=== PATIENT | female | born 1980 | race Caucasian/White ===

== ENCOUNTER 2017-01-28 12:45 | Emergency (ER) | payer OTHER ==
[2017-01-28 14:02] LABS: Basophils % (Auto) 0.5 % (0.0-1.8); Eosinophils % (Auto) 0.4 % (0.0-4.3); Hematocrit 36.6 % (30.3-42.9); Hemoglobin 11.6 gm/dl (10.1-14.3); Mean Corpuscular HGB Conc 32 % (30-34); Mean Corpuscular Hemoglobin 22 pg (28-32); Mean Corpuscular Volume 71 fl (79-97); Platelet Count 289 K/mm3 (140-440); Red Blood Count 5.19 M/mm3 (3.65-5.03); Red Cell Distribution Width 15.5 % (13.2-15.2); White Blood Count 9.1 K/mm3 (4.5-11.0)
[2017-01-28 14:28] LABS: Anion Gap 23 mmol/L; BUN/Creatinine Ratio 14.28; Blood Urea Nitrogen 10 mg/dL (7-17); Calcium 8.8 mg/dL (8.4-10.2); Carbon Dioxide 16 mmol/L (22-30); Chloride 99.6 mmol/L (98-107); Glucose 486 mg/dL (65-100); Sodium 135 mmol/L (137-145)
[2017-01-28 14:42] LABS: Bilirubin,Urine NEG (Negative); Blood,Urine NEG (Negative); Ketones,Urine TR mg/dL (Negative); Leukocyte Esterase,Urine NEG (Negative); Mucus,Urine FEW /HPF; Nitrite,Urine NEG (Negative); Protein,Urine <15 mg/dL mg/dL (Negative); Urobilinogen,Urine < 2.0 mg/dL (<2.0); WBC,Urine < 1.0 /HPF (0.0-6.0)
--- NOTE | 2017-01-28 14:46 | Emergency Department Report ---
Chief Complaint: Hyperglycemia Stated Complaint: HBS/DIABETIC Time Seen by Provider: 01/28/17 14:00 - HPI History of Present Illness: Patient here with family reports patient blood sugar was at 487 this morning. Reports patient having nausea without any vomiting. Also reports that patient is having headache at 6 out of 10. Reports that she has been on for the last 3 months she has a primary care is Dr. Saunders. She uses insulin. She is here for elevated blood glucose - ROS Review of Systems: All systems are negative unless stated in HPI above - Exam Vital Signs: Vital Signs 01/28/17 13:25 Temperature 98.1 F Pulse Rate 115 H Respiratory 24 Rate Blood Pressure 125/86 O2 Sat by Pulse 100 Oximetry Physical Exam: General: Is a 46-year-old female well-nourished well-developed nontoxic in appearance. She is alert and oriented 3. CV: Cardiac at this 115, S1 and S2. No murmur Lungs: Clear to auscultate bilaterally no rhonchi wheezes or rales. MSE screening note: Focused history and physical exam performed. Due to findings the following was ordered: ED Medical Decision Making - Lab Data Result diagrams: 01/28/17 13:43 01/28/17 13:43 Lab Results 01/28/17 01/28/17 01/28/17 Range/Units 13:22 13:43 13:43 WBC 9.1 (4.5-11.0) K/mm3 RBC 5.19 H (3.65-5.03) M/mm3 Hgb 11.6 (10.1-14.3) gm/dl Hct 36.6 (30.3-42.9) % MCV 71 L (79-97) fl MCH 22 L (28-32) pg MCHC 32 (30-34) % RDW 15.5 H (13.2-15.2) % Plt Count 289 (140-440) K/mm3 Lymph % (Auto) 25.1 (13.4-35.0) % [place] % (Auto) 8.1 H (0.0-7.3) % Eos % (Auto) 0.4 (0.0-4.3) % Baso % (Auto) 0.5 (0.0-1.8) % Lymph # 2.3 (1.2-5.4) K/mm3 [place] # 0.7 (0.0-0.8) K/mm3 Eos # 0.0 (0.0-0.4) K/mm3 Baso # 0.0 (0.0-0.1) K/mm3 Seg Neutrophils % 65.9 (40.0-70.0) % Seg Neutrophils # 6.0 (1.8-7.7) K/mm3 VBG pH (7.320-7.420) Sodium 135 L (137-145) mmol/L Potassium 4.0 (3.6-5.0) mmol/L Chloride 99.6 (98-107) mmol/L Carbon Dioxide 16 L (22-30) mmol/L Anion Gap 23 mmol/L BUN 10 (7-17) mg/dL Creatinine 0.7 (0.7-1.2) mg/dL Estimated GFR > 60 ml/min BUN/Creatinine Ratio 14.28 % Glucose 486 H (65-100) mg/dL POC Glucose 410 H (70-105) Calcium 8.8 (8.4-10.2) mg/dL Urine Color (Yellow) Urine Turbidity (Clear) Urine pH (5.0-7.0) Ur Specific [place] (1.003-1.030) Urine Protein (Negative) mg/dL Urine Glucose (UA) (Negative) mg/dL Urine Ketones (Negative) mg/dL Urine Blood (Negative) Urine Nitrite (Negative) Urine Bilirubin (Negative) Urine Urobilinogen (<2.0) mg/dL Ur Leukocyte Esterase (Negative) Urine WBC (Auto) (0.0-6.0) /HPF Urine RBC (Auto) (0.0-6.0) /HPF U Epithel Cells (Auto) (0-13.0) /HPF Urine Mucus /HPF Urine HCG, Qual (Negative) 01/28/17 01/28/17 Range/Units 13:43 14:33 WBC (4.5-11.0) K/mm3 RBC (3.65-5.03) M/mm3 Hgb (10.1-14.3) gm/dl Hct (30.3-42.9) % MCV (79-97) fl MCH (28-32) pg MCHC (30-34) % RDW (13.2-15.2) % Plt Count (140-440) K/mm3 Lymph % (Auto) (13.4-35.0) % [place] % (Auto) (0.0-7.3) % Eos % (Auto) (0.0-4.3) % Baso % (Auto) (0.0-1.8) % Lymph # (1.2-5.4) K/mm3 [place] # (0.0-0.8) K/mm3 Eos # (0.0-0.4) K/mm3 Baso # (0.0-0.1) K/mm3 Seg Neutrophils % (40.0-70.0) % Seg Neutrophils # (1.8-7.7) K/mm3 VBG pH 7.347 (7.320-7.420) Sodium (137-145) mmol/L Potassium (3.6-5.0) mmol/L Chloride (98-107) mmol/L Carbon Dioxide (22-30) mmol/L Anion Gap mmol/L BUN (7-17) mg/dL Creatinine (0.7-1.2) mg/dL Estimated GFR ml/min BUN/Creatinine Ratio % Glucose (65-100) mg/dL POC Glucose (70-105) Calcium (8.4-10.2) mg/dL Urine Color Straw (Yellow) Urine Turbidity Clear (Clear) Urine pH 5.0 (5.0-7.0) Ur Specific [place] 1.031 H (1.003-1.030) Urine Protein <15 mg/dl (Negative) mg/dL Urine Glucose (UA) >=500 (Negative) mg/dL Urine Ketones Tr (Negative) mg/dL Urine Blood Neg (Negative) Urine Nitrite Neg (Negative) Urine Bilirubin Neg (Negative) Urine Urobilinogen < 2.0 (<2.0) mg/dL Ur Leukocyte Esterase Neg (Negative) Urine WBC (Auto) < 1.0 (0.0-6.0) /HPF Urine RBC (Auto) 4.0 (0.0-6.0) /HPF U Epithel Cells (Auto) 1.0 (0-13.0) /HPF Urine Mucus Few /HPF Urine HCG, Qual Negative (Negative) - Medical Decision Making Medical decision making: Patient seen by provider in triage area. Appropriate protocol activated and patient to main ED to be seen by physician. ED Disposition for MSE Condition: Stable
[2017-01-28] MEDS ORDERED: NACL 0.9% 1000 ML 1,000 ML IV ONE ×2 (16:57)
--- NOTE | 2017-01-28 17:40 | Emergency Department Report ---
ED General Adult HPI - General Chief complaint: Hyperglycemia Stated complaint: HBS/DIABETIC Time Seen by Provider: 01/28/17 14:31 Source: patient, family Mode of arrival: Ambulatory Limitations: No Limitations - History of Present Illness Initial comments: 36 year old female with a past medical history of insulin-dependent diabetes presents to the hospital for elevated glucose. For the past 2 months her glucose has been 300-500 range. Today she started having nausea and headache rated 6/10 intensity so came to ER for evaluation. Patient states she is prescribed NovoLog 25 mg 3 times a day and Lantus 50 units at bedtime. Patient will average takes her novlog insulin 1-2 times a day. Sometimes she decreases her dose if she eats less or does not take the medication at all if she does not eat a meal. She is also noncompliant with her evening dose of Lantus and does not take it every day as scheduled. Patient does not complain of any pain currently although headache of reported in triage and only complains of feeling hungry. She complains of vaginal discharge as well. Patient does have a PMD Dr. Saunders - Related Data Home Medications Medication Instructions Recorded Confirmed Last Taken Insulin Aspart [NovoLOG Flexpen] 25 units SQ AC 01/28/17 01/28/17 01/26/17 Insulin Glargine [Lantus] 50 units SQ QHS 01/28/17 01/28/17 01/26/17 Allergies Allergy/AdvReac Type Severity Reaction Status Date / Time No Known Allergies Allergy Unverified 01/28/17 13:25 ED Review of Systems ROS: Stated complaint: HBS/DIABETIC Other details as noted in HPI Comment: All other systems reviewed and negative Other: Constitutional: No fevers chills Eyes: No eye pain visual changes ENT: No ear pain or throat pain Neck: Denies pain Respiratory: Denies cough wheezing shortness of breath Cardiovascular: Denies chest pain, palpitations, syncope GI: Denies abdominal pain, vomiting, diarrhea : Denies dysuria Musculoskeletal: Denies back pain Skin: Denies rash, lesions, erythema Neurologic: Denies numbness, weakness Psychiatric: Denies suicidal ideation, hallucinations ED Past Medical Hx - Past Medical History Previous Medical History?: Yes Hx Diabetes: Yes - Surgical History Past Surgical History?: No - Social History Smoking Status: Never Smoker Substance Use Type: None - Medications Home Medications: Home Medications Medication Instructions Recorded Confirmed Last Taken Type Insulin Aspart [NovoLOG Flexpen] 25 units SQ AC 01/28/17 01/28/17 01/26/17 History Insulin Glargine [Lantus] 50 units SQ QHS 01/28/17 01/28/17 01/26/17 History ED Physical Exam - General Limitations: No Limitations - Other Other exam information: General: No limitations, patient is alert in no acute distress Head exam: Atraumatic, normocephalic Eyes exam: Normal appearance ENT: Moist mucous membrane, normal oropharynx Neck exam: Normal inspection, full range of motion Respiratory exam: Clear to auscultation bilateral, no wheezes, rales, crackles Cardiovascular: Mild tachycardia regular rhythm Abdomen: Soft, nondistended, and nontender, with normal bowel sounds, no rebound, or guarding Extremity: Full range of motion normal inspection no deformity Back: Normal Inspection, full range of motion, no tenderness Neurologic: Alert, oriented x3, cranial nerves intact, no motor or sensory deficit Psychiatric: normal affect, normal mood Skin: Warm, dry, intact ED Course Vital Signs 01/28/17 01/28/17 13:25 18:35 Temperature 98.1 F 98.3 F Pulse Rate 115 H 97 H Respiratory 24 18 Rate Blood Pressure 125/86 Blood Pressure 132/71 [Right] O2 Sat by Pulse 100 98 Oximetry - Reevaluation(s) Reevaluation #1: 01/28/17 19:57 Patient received insulin at 2 L or normal saline with improvement and glucose level and symptoms ED Medical Decision Making - Lab Data Result diagrams: 01/28/17 13:43 01/28/17 13:43 Lab Results 01/28/17 01/28/17 01/28/17 Range/Units 13:22 13:43 13:43 WBC 9.1 (4.5-11.0) K/mm3 RBC 5.19 H (3.65-5.03) M/mm3 Hgb 11.6 (10.1-14.3) gm/dl Hct 36.6 (30.3-42.9) % MCV 71 L (79-97) fl MCH 22 L (28-32) pg MCHC 32 (30-34) % RDW 15.5 H (13.2-15.2) % Plt Count 289 (140-440) K/mm3 Lymph % (Auto) 25.1 (13.4-35.0) % [place] % (Auto) 8.1 H (0.0-7.3) % Eos % (Auto) 0.4 (0.0-4.3) % Baso % (Auto) 0.5 (0.0-1.8) % Lymph # 2.3 (1.2-5.4) K/mm3 [place] # 0.7 (0.0-0.8) K/mm3 Eos # 0.0 (0.0-0.4) K/mm3 Baso # 0.0 (0.0-0.1) K/mm3 Seg Neutrophils % 65.9 (40.0-70.0) % Seg Neutrophils # 6.0 (1.8-7.7) K/mm3 VBG pH (7.320-7.420) Sodium 135 L (137-145) mmol/L Potassium 4.0 (3.6-5.0) mmol/L Chloride 99.6 (98-107) mmol/L Carbon Dioxide 16 L (22-30) mmol/L Anion Gap 23 mmol/L BUN 10 (7-17) mg/dL Creatinine 0.7 (0.7-1.2) mg/dL Estimated GFR > 60 ml/min BUN/Creatinine Ratio 14.28 % Glucose 486 H (65-100) mg/dL POC Glucose 410 H (70-105) Calcium 8.8 (8.4-10.2) mg/dL Urine Color (Yellow) Urine Turbidity (Clear) Urine pH (5.0-7.0) Ur Specific [place] (1.003-1.030) Urine Protein (Negative) mg/dL Urine Glucose (UA) (Negative) mg/dL Urine Ketones (Negative) mg/dL Urine Blood (Negative) Urine Nitrite (Negative) Urine Bilirubin (Negative) Urine Urobilinogen (<2.0) mg/dL Ur Leukocyte Esterase (Negative) Urine WBC (Auto) (0.0-6.0) /HPF Urine RBC (Auto) (0.0-6.0) /HPF U Epithel Cells (Auto) (0-13.0) /HPF Urine Mucus /HPF Urine HCG, Qual (Negative) 01/28/17 01/28/17 01/28/17 Range/Units 13:43 14:33 17:26 WBC (4.5-11.0) K/mm3 RBC (3.65-5.03) M/mm3 Hgb (10.1-14.3) gm/dl Hct (30.3-42.9) % MCV (79-97) fl MCH (28-32) pg MCHC (30-34) % RDW (13.2-15.2) % Plt Count (140-440) K/mm3 Lymph % (Auto) (13.4-35.0) % [place] % (Auto) (0.0-7.3) % Eos % (Auto) (0.0-4.3) % Baso % (Auto) (0.0-1.8) % Lymph # (1.2-5.4) K/mm3 [place] # (0.0-0.8) K/mm3 Eos # (0.0-0.4) K/mm3 Baso # (0.0-0.1) K/mm3 Seg Neutrophils % (40.0-70.0) % Seg Neutrophils # (1.8-7.7) K/mm3 VBG pH 7.347 (7.320-7.420) Sodium (137-145) mmol/L Potassium (3.6-5.0) mmol/L Chloride (98-107) mmol/L Carbon Dioxide (22-30) mmol/L Anion Gap mmol/L BUN (7-17) mg/dL Creatinine (0.7-1.2) mg/dL Estimated GFR ml/min BUN/Creatinine Ratio % Glucose (65-100) mg/dL POC Glucose 305 H (70-105) Calcium (8.4-10.2) mg/dL Urine Color Straw (Yellow) Urine Turbidity Clear (Clear) Urine pH 5.0 (5.0-7.0) Ur Specific [place] 1.031 H (1.003-1.030) Urine Protein <15 mg/dl (Negative) mg/dL Urine Glucose (UA) >=500 (Negative) mg/dL Urine Ketones Tr (Negative) mg/dL Urine Blood Neg (Negative) Urine Nitrite Neg (Negative) Urine Bilirubin Neg (Negative) Urine Urobilinogen < 2.0 (<2.0) mg/dL Ur Leukocyte Esterase Neg (Negative) Urine WBC (Auto) < 1.0 (0.0-6.0) /HPF Urine RBC (Auto) 4.0 (0.0-6.0) /HPF U Epithel Cells (Auto) 1.0 (0-13.0) /HPF Urine Mucus Few /HPF Urine HCG, Qual Negative (Negative) 01/28/17 Range/Units 18:32 WBC (4.5-11.0) K/mm3 RBC (3.65-5.03) M/mm3 Hgb (10.1-14.3) gm/dl Hct (30.3-42.9) % MCV (79-97) fl MCH (28-32) pg MCHC (30-34) % RDW (13.2-15.2) % Plt Count (140-440) K/mm3 Lymph % (Auto) (13.4-35.0) % [place] % (Auto) (0.0-7.3) % Eos % (Auto) (0.0-4.3) % Baso % (Auto) (0.0-1.8) % Lymph # (1.2-5.4) K/mm3 [place] # (0.0-0.8) K/mm3 Eos # (0.0-0.4) K/mm3 Baso # (0.0-0.1) K/mm3 Seg Neutrophils % (40.0-70.0) % Seg Neutrophils # (1.8-7.7) K/mm3 VBG pH (7.320-7.420) Sodium (137-145) mmol/L Potassium (3.6-5.0) mmol/L Chloride (98-107) mmol/L Carbon Dioxide (22-30) mmol/L Anion Gap mmol/L BUN (7-17) mg/dL Creatinine (0.7-1.2) mg/dL Estimated GFR ml/min BUN/Creatinine Ratio % Glucose (65-100) mg/dL POC Glucose 152 H (70-105) Calcium (8.4-10.2) mg/dL Urine Color (Yellow) Urine Turbidity (Clear) Urine pH (5.0-7.0) Ur Specific [place] (1.003-1.030) Urine Protein (Negative) mg/dL Urine Glucose (UA) (Negative) mg/dL Urine Ketones (Negative) mg/dL Urine Blood (Negative) Urine Nitrite (Negative) Urine Bilirubin (Negative) Urine Urobilinogen (<2.0) mg/dL Ur Leukocyte Esterase (Negative) Urine WBC (Auto) (0.0-6.0) /HPF Urine RBC (Auto) (0.0-6.0) /HPF U Epithel Cells (Auto) (0-13.0) /HPF Urine Mucus /HPF Urine HCG, Qual (Negative) wet prep neg, gc/chl pending - Medical Decision Making Patient has a anion gap decreased bicarbonate but normal pH and only trace urine ketones. Glucose improved with treatment. Patient also is not ill- appearing. Will be encouraged to take her insulin as prescribed and follow up with her doctor. HR improved - Differential Diagnosis DKA, hyperglycemia, medication noncompliance, yeast vaginitis, Critical Care Time: No Critical care attestation.: If time is entered above; I have spent that time in minutes in the direct care of this critically ill patient, excluding procedure time. ED Disposition Clinical Impression: Diabetes mellitus with hyperglycemia, Noncompliance with medication regimen Disposition: DISCHARGED TO HOME OR SELFCARE Is pt being admited?: No Does the pt Need Aspirin: No Condition: Stable Instructions: Diabetes Mellitus Type 2 in Adults (ED) Additional Instructions: Take your insulin as prescribed. Continue to monitor your sugars multiple times daily to ensure that the insulin is adequate to control your sugars. Follow up with your primary care doctor for further medication adjustment. [place] pizarro insulina segn lo prescrito. Contine monitoreando dina azcares varias veces al da para asegurarse de que la insulina es adecuada para controlar dina azcares. Viviana un seguimiento con pizarro mdico de atencin primaria para un ajuste adicional de la medicacin. Referrals: PRIMARY CARE, [Primary Care Provider] - 2-3 Days Time of Disposition: 20:01
[2017-01-28 18:37] VITALS: BP 132/71
--- NOTE | 2017-01-28 19:04 | Admit Criteria Form ---
Admission Criteria Documentation: DIABETES Clinical Indications for Admission to Inpatient Care (Place 'X' for any and all applicable criteria): Admission is indicated by presence of ALL (if I & II) or ANY ONE (if III or IV) of the following (1)(2)(3)(4): [ ]I. Diabetes is uncontrolled as indicated by ANY ONE of the following: [ ]a) Diabetic ketoacidosis as indicated by ALL of the following (8): [ ]i) Hyperglycemia (eg, plasma glucose greater than 200 mg/ dL (11.1 mmol/L)) [ ]ii) Acidosis (eg, arterial pH less than 7.30, serum bicarbonate level less than 15 mEq/L (mmol/L)) [ ]iii) Moderate ketonuria or ketonemia [ ]b) Hyperglycemic hyperosmolar state as indicated by ALL of the following(9)(10): [ ]i) Neurologic dysfunction (eg, stupor, coma, hemiparesis , seizure)(13) [ ]ii) Plasma glucose greater than 600 mg/dL (33.3 mmol/L) [ ]iii) Serum osmolality greater than 320 mOsm/kg (mmol/kg) [ ]c) Severe signs or symptoms secondary to hyperglycemia indicated by ANY ONE of the following: [ ]i) Altered mental status(10) [ ]ii) Significant hypovolemia or dehydration [ ]iii) Intractable nausea or vomiting [ ]iv) Unexplained fever or severe infection [ ]v) Severe electrolyte abnormality (eg, hypokalemia, hyperkalemia, hypernatremia) [ ]II. Management at other levels of care (Also use Diabetes: Observation Care as appropriate) is not feasible because of ANY ONE of the following: [ ]a) Condition was not adequately corrected with treatment at other levels of care. [ ]b) Treatment at other levels of care is not appropriate because of condition severity (eg, hyperosmolar coma). [ ]III. Contraindications and/or Inappropriate clinical situations for Observational Care in patients with Diabetes, when ANY ONE of the following is required: [ ]a) Patient require specific diagnostic workup or therapeutic intervention 22 [ ]b) Patient with abnormal vital signs or altered mental status 23 [ ]IV. General contraindications and/or Inappropriate clinical situations for Observational Care in patients with Diabetes, when ANY ONE of the following is required: [ ]a) Prediction of prolongation of LOS based on ANY ONE of the following may be considered as a contraindication for observational care 2, 3, 4, 5, 6, 7, 8, 9, 10, 11 [ ]i) Age > 65 yrs. [ ]ii) Patient arriving by ambulance [ ]iii) Patient with high acuity [ ]iv) Patient requiring vital sign monitoring [ ]v) Patient on IV medication [ ]b) Systolic blood pressures 180mmHg 3,12 [ ]c) Patient with altered mental status including delirium and other alteration of consciousness, (3) [ ]d) Patient whose discharge disposition will be to a half-way home or rehabilitation home should not be managed in Emergency Department Observation Unit. CMS rule requires 3 days hospital stay before such placement.3,13 [ ]e) Patient with failure to thrive due to broad array of etiologies 3,16,17 [ ]f) Inability to ambulate 3,14 Extended stay beyond goal length of stay may be needed for(3)(20): [ ]a) Treatment of precipitating causes [ ]b) Development of hypoglycemia [ ]c) Complications of treatment [ ]d) Complications of decompensated diabetes (eg, acute gastric dilatation, persistent metabolic or neurologic derangement) [ ]e) Active Comorbidities [ ]f) Older patients( 65 years or older) The original [employer] content created by [employer] has been revised. The portions of the content which have been revised are identified through the use of italic text or in bold,and [facility] has neither reviewed nor approved the modified material. All other unmodified content is copyright [facility] Please see references footnoted in the original [facility] edition 2016
[2017-02-01 07:31] LABS: B-Hydroxybutyrate 0.1 mmol/L (0.2 - 0.28)
== END 2017-01-28 20:15 | disposition home or self-care (01) ==
LOC: ED 12:45
DX: E11.65 Type 2 diabetes mellitus with hyperglycemia (principal); Z79.4 Long term (current) use of insulin
CPT/HCPCS: 36415; 80048; 81001; 81025; 82010; 82805; 82962; 85025; 87210; 87591; 96361; 96374; 99284; J7030; J1815

== ENCOUNTER 2019-01-09 12:20 | Emergency (ER) | payer OTHER ==
--- NOTE | 2019-01-09 13:08 | Emergency Department Report ---
Blank Doc - Documentation Documentation: 38 y/o female presents to ED c/o of a few days history of pelvic pain associated with hematuria and dysuria. no vaginal discharge. no nausea or vomiting. [employer] was her roomate and best friend (language line down)
[2019-01-09 13:57] LABS: HCG Qualitative,Urine Negative (Negative)
[2019-01-09 13:58] LABS: Bilirubin,Urine NEG (Negative); Blood,Urine SM (Negative); Color,Urine Straw (Yellow); Mucus,Urine FEW /HPF; Protein,Urine <15 mg/dL mg/dL (Negative); Urobilinogen,Urine < 2.0 mg/dL (<2.0)
[2019-01-09 14:10] LABS: Hematocrit 34.1 % (30.3-42.9); Hemoglobin 11.2 gm/dl (10.1-14.3); Mean Corpuscular HGB Conc 33 % (30-34); Mean Corpuscular Volume 72 fl (79-97); Platelet Count 251 K/mm3 (140-440)
[2019-01-09 14:11] LABS: Red Cell Distribution Width 30.3 % (13.2-15.2)
[2019-01-09 14:33] LABS: Alanine Aminotransferase 13 units/L (7-56); Albumin 3.5 g/dL (3.9-5); BUN/Creatinine Ratio 15; Blood Urea Nitrogen 9 mg/dL (7-17); Calcium 8.9 mg/dL (8.4-10.2); Hemolysis Index 8
[2019-01-09 14:36] LABS: Bilirubin,Direct < 0.2 mg/dL (0-0.2)
[2019-01-09] MEDS ORDERED: MORPHINE IV ONE ×2 (15:02→16:38)
[2019-01-09] MEDS ORDERED: NACL 0.9% 1000 ML 1,000 ML IV ONE (15:02)
[2019-01-09] MEDS ORDERED: ZOFRAN IV ONE (15:02)
[2019-01-09 15:31] LABS: Basophils % (Manual) 0 % (0.0-1.8); Eosinophils % (Manual) 0 % (0.0-4.3); Total Cells Counted 100
[2019-01-09 15:32] LABS: Anisocytosis 2+; Platelet Estimate Consistent w Auto
--- NOTE | 2019-01-09 15:34 | Emergency Department Report ---
<YENNI ROBB - Last Filed: 01/09/19 16:45> ED Abdominal Pain HPI - General Chief Complaint: Abdominal Pain Stated Complaint: ABD PAIN/REF BY DR Time Seen by Provider: 01/09/19 12:55 Source: patient Mode of arrival: Ambulatory Limitations: No Limitations - History of Present Illness Initial Comments: This is a 38-year-old female nontoxic, well nourished in appearance, no acute signs of distress presents to the ED with c/o of left flank pain with left sided abdominal pain 3 days. Patient denies any nausea or vomiting. Patient describes abdominal pain as cramping and aching with level of 3/10. Patient denies chest pain, short of breath, fever, chills, headache, stiff neck, numbness or tingling. Patient denies any diarrhea or constipation. Patient denies any recent travels. Patient stated allergies to flagyl. Patient also stated has some urinary dysuria and frequency. PMH includes DM. Family member is present during exam and interview. MD Complaint: abdominal pain, flank pain (left flank) -: days(s) (3) Location: LUQ Radiation: L flank Migration to: no migration Severity: mild Severity scale (0 -10): 8 Quality: cramping, aching Consistency: constant Improves With: nothing Worsens With: nothing Associated Symptoms: denies other symptoms. denies: nausea, vomiting, diarrhea, fever, chills, constipation, dysuria, hematemesis, hematochezia, melena, hematuria, anorexia, syncope - Related Data Home Medications Medication Instructions Recorded Confirmed Last Taken Insulin Aspart [NovoLOG Flexpen] 25 units SQ AC 01/28/17 01/28/17 01/26/17 Insulin Glargine [Lantus] 50 units SQ QHS 01/28/17 01/28/17 01/26/17 Previous Rx's Medication Instructions Recorded Last Taken Type Ibuprofen [Ibu] 800 mg PO Q8H PRN #20 tablet 01/09/19 Unknown Rx Ondansetron [Zofran Odt] 4 mg PO Q8HR #10 tab.rapdis 01/09/19 Unknown Rx Oxycodone HCl/Acetaminophen 1 each PO Q6HR PRN #14 tablet 01/09/19 Unknown Rx [Percocet 7.5/325 mg] levoFLOXacin [Levaquin TAB] 500 mg PO QDAY #10 tablet 01/09/19 Unknown Rx Allergies Allergy/AdvReac Type Severity Reaction Status Date / Time fluconazole Allergy Itching Verified 01/09/19 12:24 ED Review of Systems Constitutional: denies: chills, fever Eyes: denies: eye pain, eye discharge, vision change ENT: denies: ear pain, throat pain Respiratory: denies: cough, shortness of breath, wheezing Cardiovascular: denies: chest pain, palpitations Endocrine: no symptoms reported Gastrointestinal: abdominal pain, nausea, vomiting. denies: diarrhea Genitourinary: denies: urgency, dysuria, discharge Musculoskeletal: denies: back pain, joint swelling, arthralgia Skin: denies: rash, lesions Neurological: denies: headache, weakness, paresthesias Psychiatric: denies: anxiety, depression Hematological/Lymphatic: denies: easy bleeding, easy bruising ED Past Medical Hx - Past Medical History Hx Diabetes: Yes Additional medical history: hypothyroid, - Surgical History Additional Surgical History: c sect. x 3, tubal ligation, reversion of tubal - Social History Smoking Status: Never Smoker Substance Use Type: None - Medications Home Medications: Home Medications Medication Instructions Recorded Confirmed Last Taken Type Insulin Aspart [NovoLOG Flexpen] 25 units SQ AC 01/28/17 01/28/17 01/26/17 History Insulin Glargine [Lantus] 50 units SQ QHS 01/28/17 01/28/17 01/26/17 History Ibuprofen [Ibu] 800 mg PO Q8H PRN #20 tablet 01/09/19 Unknown Rx Ondansetron [Zofran Odt] 4 mg PO Q8HR #10 tab.rapdis 01/09/19 Unknown Rx Oxycodone HCl/Acetaminophen 1 each PO Q6HR PRN #14 tablet 01/09/19 Unknown Rx [Percocet 7.5/325 mg] levoFLOXacin [Levaquin TAB] 500 mg PO QDAY #10 tablet 01/09/19 Unknown Rx ED Physical Exam - General Limitations: No Limitations General appearance: alert, in no apparent distress - Head Head exam: Present: atraumatic, normocephalic - Eye Eye exam: Present: normal appearance - Neck Neck exam: Present: normal inspection, full ROM. Absent: tenderness, meningismus, lymphadenopathy - Respiratory Respiratory exam: Present: normal lung sounds bilaterally. Absent: respiratory distress, wheezes, rales, rhonchi, stridor, chest wall tenderness, accessory muscle use, decreased breath sounds, prolonged expiratory - Cardiovascular Cardiovascular Exam: Present: regular rate, normal rhythm, normal heart sounds. Absent: irregular rhythm, systolic murmur, diastolic murmur, rubs, gallop - GI/Abdominal GI/Abdominal exam: Present: soft, tenderness (LUQ), normal bowel sounds. Absent: distended, guarding, rebound, rigid, diminished bowel sounds - Expanded GI/Abdominal Exam Expanded GI/Abdominal exam: Absent: psoas sign, Gee's sign, Rovsing's sign, tenderness at Mcburney's Point, ascites - Extremities Exam Extremities exam: Present: normal inspection, full ROM - Back Exam Back exam: Present: normal inspection, full ROM, CVA tenderness (L). Absent: tenderness, CVA tenderness (R), muscle spasm, paraspinal tenderness, vertebral tenderness, rash noted - Neurological Exam Neurological exam: Present: alert, oriented X3 - Psychiatric Psychiatric exam: Present: normal affect, normal mood - Skin Skin exam: Present: warm, dry, intact, normal color. Absent: rash ED Course - Reevaluation(s) Reevaluation #1: 01/09/19 15:34 Patient is speaking in full sentences with no signs of distress noted. - Consultations Consultation #1: 01/09/19 16:41 Patient has been consulted with Dr. Hauser (hospitalist) about patient history, physical exam, and labs/CT results and accepts patient to services for admission. ED Medical Decision Making - Lab Data Result diagrams: 01/09/19 14:00 01/09/19 14:00 - Medical Decision Making This is a 38-year-old female that presents with pyelonephritis. Patient is stable and was examined by me. Labs obtained. UA obtained. CT with contrast of abdomen obtained and dictated by the radiologist. Patient is notified of the report with no questions noted by the patient. Vital signs are stable. due to patient history of DM and pyelonephritis with uncontrolled pain, patient to be admitted. Patient received 1 g of Rocephin IV in the ER. Patient also received 8 mg of morphine in the ER and stated that symptoms of pain has not resolved. Patient was discussed with Dr. Hauser hospitalist and accepts patient for admission. At time of admission, the patient does not seem toxic or ill in appearance. No acute signs of distress noted. Patient agrees to admission treatment plan of care. No further questions noted by the patient. Patient's family member was present during full physical exam and interview for translation purposes. ED Disposition Clinical Impression: Pyelonephritis, Hyperglycemia Disposition: DC-01 TO HOME OR SELFCARE Is pt being admited?: Yes Condition: Stable Additional Instructions: Please follow up with whichever urologist conceive soonest Referrals: TRISTIN WADE MD [Staff Physician] - 3-5 Days ERIN HERNANDEZ MD [Staff Physician] - 3-5 Days Print Language: BURKINAN <SO TORRES - Last Filed: 01/09/19 21:50> ED Review of Systems ROS: Stated complaint: ABD PAIN/REF BY Other details as noted in HPI ED Course Vital Signs 01/09/19 01/09/19 01/09/19 13:04 16:46 17:39 Temperature 99.2 F Pulse Rate 117 H 99 H Respiratory 20 18 18 Rate Blood Pressure 138/90 Blood Pressure 122/82 [Right] O2 Sat by Pulse 98 Oximetry 01/09/19 21:00 Temperature Pulse Rate 101 H Respiratory 18 Rate Blood Pressure Blood Pressure 112/68 [Right] O2 Sat by Pulse 99 Oximetry ED Medical Decision Making - Lab Data Result diagrams: 01/09/19 14:00 01/09/19 14:00 - Medical Decision Making Patient is a 38-year-old female who is presenting with some left-sided flank pain. Urinalysis did not show a urinary tract infection however CT does show that she has some perinephric stranding. This is an abnormal presentation of pyelonephritis. Patient earlier was having intractable pain and after being given morphine was still having pain before decision was made to have the hospitalist service see the patient for probable admission. Patient was given additional 1 mg of Dilaudid. That they redid see the patient and the patient's pain was well-controlled and feels that the patient met criteria for hospi talization at this time since the patient was tolerating by mouth and was having better pain control. Patient was examined by me as well and the patient states that her pain was a 3 out of 10 in severity. She states she is much better than she was earlier today. Incisions been made to discharge patient home. Patient was started on Levaquin which hasn't same bioavailability whether given by mouth or IV the patient be given Percocet for pain control and the patient will be discharged home for follow-up with urology. Because of the abnormal presentation of pyelonephritis distress to the patient is to call urology tomorrow in the morning to schedule follow-up. Critical care attestation.: If time is entered above; I have spent that time in minutes in the direct care of this critically ill patient, excluding procedure time. ED Disposition Is pt being admited?: No Does the pt Need Aspirin: No Time of Disposition: 21:50
--- NOTE | 2019-01-09 16:22 | Cat Scan Report ---
PROCEDURE: CT ABDOMEN PELVIS W CON TECHNIQUE: Axial images obtained at or pelvis following intravenous administration of contrast. Sagi ttal and coronal reformatted images obtained. HISTORY: abdominal pain COMPARISONS: None FINDINGS: Lung bases demonstrate hypoventilatory changes. No effusion. Liver demonstrates hypoattenuation compatible with fatty infiltration. Mild hepatomegaly. No focal le naima. Gallbladder demonstrates radiopaque calculi. Crocheter calculus measures 1.7 cm. No biliary dila tation. Spleen and pancreas unremarkable. Adrenal glands unremarkable. Right kidney demonstrates normal contour. Normal enhancement. No hydronephrosis. No evidence of obstr uction Left kidney demonstrates. Hypoattenuation midpole compatible with pyelonephritis. Perinephric strandi ng compatible with inflammatory change. No hydronephrosis. No evidence of obstruction. No abscess. Bladder unremarkable. Anteverted uterus. No adnexal mass. Aorta normal caliber. No atherosclerotic calcification. Celiac and superior mesenteric arteries are p atent. No bowel obstruction. No diverticulosis. No diverticulitis. Normal appendix. No free air. No free flu id. Omentum and mesentery unremarkable. No acute bony abnormality. IMPRESSION: . Hypoenhancement mid left kidney compatible with polynephritis. Perinephric stranding. No hydronephr osis. No abscess. Fatty infiltration liver. Mild hepatomegaly Cholelithiasis No free air. No free fluid No bowel obstruction Normal appendix. This document is electronically signed by Luis Jang MD., January 09 2019 04:20:48 PM ET
[2019-01-09] MEDS ORDERED: ROCEPHIN/NS 1 GM/50 ML 1 GM/50 ML BAG IV ONE (16:24)
[2019-01-09] MEDS ORDERED: DILAUDID IV ONE (18:26)
[2019-01-09] MEDS ORDERED: DILAUDID ONE (18:29)
[2019-01-09] MEDS ORDERED: LEVAQUIN PO ONE (21:35)
[2019-01-09 22:43] VITALS: BP 116/78
== END 2019-01-09 22:45 | disposition home or self-care (01) ==
LOC: ED 12:20
DX: N12 Tubulo-interstitial nephritis, not specified as acute or chronic (principal); E11.65 Type 2 diabetes mellitus with hyperglycemia; E03.9 Hypothyroidism, unspecified; Z98.51 Tubal ligation status; Z88.1 Allergy status to other antibiotic agents; Z79.4 Long term (current) use of insulin
CPT/HCPCS: 36415; 74177; 80048; 80076; 81001; 81025; 83690; 85007; 85025; 87086; 96361; 96365; 96375; 96376; 99284; J0696; J1170; J2270; J2405; J7030; Q9967

== ENCOUNTER 2019-10-12 14:20 | Emergency (ER) | payer OTHER ==
--- NOTE | 2019-10-12 14:33 | Event Note ---
ED Screening Note Date of service: 10/12/19 Time: 14:30 ED Screening Note: This is a 39 y.o. F. that presents to the ER with hyperglycemia. PMH of DM2 and hypothyroidism Patient taking Lantus and metformin as directed. This initial assessment/diagnostic orders/clinical plan/treatment(s) is/are subject to change based on patients health status, clinical progression and re- assessment by fellow clinical providers in the ED. Further treatment and workup at subsequent clinical providers discretion. Patient/guardian urged not to elope from the ED as their condition may be serious if not clinically assessed and managed. Initial orders include: Labs Glucose 357
[2019-10-12 14:50] LABS: Basophils # (Auto) 0.1 K/mm3 (0.0-0.1); Basophils % (Auto) 0.8 % (0.0-1.8); Eosinophils # (Auto) 0.1 K/mm3 (0.0-0.4); Eosinophils % (Auto) 1.2 % (0.0-4.3); Hematocrit 42.6 % (30.3-42.9); Hemoglobin 14.8 gm/dl (10.1-14.3); Lymphocytes # (Auto) 2.5 K/mm3 (1.2-5.4); Lymphocytes % (Auto) 34.3 % (13.4-35.0); Mean Corpuscular HGB Conc 35 % (30-34); Mean Corpuscular Volume 89 fl (79-97); Monocytes # (Auto) 0.4 K/mm3 (0.0-0.8); Monocytes % (Auto) 5.3 % (0.0-7.3); Platelet Count 311 K/mm3 (140-440); Red Cell Distribution Width 13.1 % (13.2-15.2)
[2019-10-12 15:15] LABS: Alanine Aminotransferase 18 units/L (7-56); Albumin 3.9 g/dL (3.9-5); BUN/Creatinine Ratio 15; Blood Urea Nitrogen 9 mg/dL (7-17); Calcium 9.2 mg/dL (8.4-10.2); Hemolysis Index 12
[2019-10-12 15:20] LABS: Bilirubin,Urine NEG (Negative); Blood,Urine LG (Negative); Color,Urine Straw (Yellow); Protein,Urine <15 mg/dL mg/dL (Negative); Urobilinogen,Urine < 2.0 mg/dL (<2.0)
[2019-10-12 15:26] LABS: HCG Qualitative,Urine Negative (Negative)
--- NOTE | 2019-10-12 23:14 | Emergency Department Report ---
ED General Adult HPI - General Chief complaint: Hyperglycemia Stated complaint: BLOOD GLUCOSE HIGH Time Seen by Provider: 10/12/19 14:30 Source: patient Mode of arrival: Ambulatory Limitations: Language Barrier - History of Present Illness Initial comments: Patient is a 39 years old female with history of diabetes and hypothyroidism. Patient is taking Lantus 30 mg at night and stated that she is taking 25 units of NovoLog before meal. Patient also stated that she is taking metformin. Patient presented to the ER complaining of high blood sugar today. Patient denied any chest pain, shortness of breath, abdominal pain, nausea or vomiting. No urinary symptoms. - Related Data Home Medications Medication Instructions Recorded Confirmed Last Taken Insulin Aspart (Nf) [NovoLOG 25 units SQ AC 01/28/17 01/28/17 01/26/17 Flexpen] Insulin Glargine [Lantus] 50 units SQ QHS 01/28/17 01/28/17 01/26/17 Previous Rx's Medication Instructions Recorded Last Taken Type Ibuprofen [Ibu] 800 mg PO Q8H PRN #20 tablet 01/09/19 Unknown Rx Ondansetron [Zofran Odt] 4 mg PO Q8HR #10 tab.rapdis 01/09/19 Unknown Rx Oxycodone HCl/Acetaminophen 1 each PO Q6HR PRN #14 tablet 01/09/19 Unknown Rx [Percocet 7.5/325 mg] levoFLOXacin [Levaquin TAB] 500 mg PO QDAY #10 tablet 01/09/19 Unknown Rx Allergies Allergy/AdvReac Type Severity Reaction Status Date / Time fluconazole Allergy Itching Verified 01/09/19 12:24 ED Review of Systems ROS: Stated complaint: BLOOD GLUCOSE HIGH Other details as noted in HPI Comment: All other systems reviewed and negative Constitutional: denies: chills, fever Respiratory: denies: cough, shortness of breath, SOB with exertion, SOB at rest, wheezing Cardiovascular: denies: chest pain, palpitations Gastrointestinal: denies: abdominal pain, nausea, vomiting, diarrhea, constipation, hematemesis, melena Genitourinary: dysuria, frequency. denies: urgency Musculoskeletal: denies: back pain Neurological: denies: headache, weakness, numbness, paresthesias, confusion ED Past Medical Hx - Past Medical History Previous Medical History?: Yes Hx Diabetes: Yes Additional medical history: hypothyroid, - Surgical History Past Surgical History?: Yes Additional Surgical History: c sect. x 3, tubal ligation, reversion of tubal - Social History Smoking Status: Never Smoker Substance Use Type: None - Medications Home Medications: Home Medications Medication Instructions Recorded Confirmed Last Taken Type Insulin Aspart (Nf) [NovoLOG 25 units SQ AC 01/28/17 01/28/17 01/26/17 History Flexpen] Insulin Glargine [Lantus] 50 units SQ QHS 01/28/17 01/28/17 01/26/17 History Ibuprofen [Ibu] 800 mg PO Q8H PRN #20 tablet 01/09/19 Unknown Rx Ondansetron [Zofran Odt] 4 mg PO Q8HR #10 tab.rapdis 01/09/19 Unknown Rx Oxycodone HCl/Acetaminophen 1 each PO Q6HR PRN #14 tablet 01/09/19 Unknown Rx [Percocet 7.5/325 mg] levoFLOXacin [Levaquin TAB] 500 mg PO QDAY #10 tablet 01/09/19 Unknown Rx ED Physical Exam - General Limitations: Language Barrier General appearance: alert, in no apparent distress - Head Head exam: Present: atraumatic, normocephalic, normal inspection - ENT ENT exam: Present: mucous membranes dry - Neck Neck exam: Present: normal inspection, full ROM. Absent: tenderness, meningismus, lymphadenopathy, thyromegaly - Respiratory Respiratory exam: Present: normal lung sounds bilaterally - Cardiovascular Cardiovascular Exam: Present: regular rate, normal rhythm, normal heart sounds - GI/Abdominal GI/Abdominal exam: Present: soft, normal bowel sounds. Absent: distended, tenderness, guarding, rebound, rigid, organomegaly, mass, bruit, pulsatile mass, hernia - Extremities Exam Extremities exam: Present: normal inspection, full ROM, normal capillary refill. Absent: tenderness, pedal edema, joint swelling, calf tenderness - Back Exam Back exam: Present: normal inspection, full ROM. Absent: CVA tenderness (R), CVA tenderness (L), muscle spasm, paraspinal tenderness, vertebral tenderness - Neurological Exam Neurological exam: Present: alert, oriented X3, CN II-XII intact, normal gait, reflexes normal - Psychiatric Psychiatric exam: Present: normal mood - Skin Skin exam: Present: warm, intact, normal color ED Course Vital Signs 10/12/19 10/12/1920 14:28 22:11 22:16 Temperature 98.1 F Pulse Rate 89 Respiratory 18 Rate Blood Pressure 124/93 122/86 O2 Sat by Pulse 100 99 99 Oximetry 10/12/19 10/12/19 10/12/19 22:30 22:45 23:00 Temperature Pulse Rate Respiratory Rate Blood Pressure 117/80 122/86 120/82 O2 Sat by Pulse 97 99 99 Oximetry 10/12/19 23:15 Temperature Pulse Rate Respiratory Rate Blood Pressure 117/80 O2 Sat by Pulse 99 Oximetry ED Medical Decision Making - Lab Data Result diagrams: 10/12/19 14:38 10/12/19 14:38 - Medical Decision Making Patient is a 39 years old female with history of diabetes and hypothyroidism. Patient is taking Lantus 30 mg at night and stated that she is taking 25 units of NovoLog before meal. Patient also stated that she is taking metformin. Patient presented to the ER complaining of high blood sugar today. Patient denied any chest pain, shortness of breath, abdominal pain, nausea or vomiting. No urinary symptoms. Patient received 1 L of normal saline, insulin regular 8 units IV. Patient stated that she is feeling much better. Blood glucose now is 293. Patient advised to be compliant with her medication and to follow-up with her primary care physician in the next 2-3 days and to return to the ER if symptoms are not improved. Critical care attestation.: If time is entered above; I have spent that time in minutes in the direct care of this critically ill patient, excluding procedure time. ED Disposition Clinical Impression: Acute hyperglycemia Disposition: DC-01 TO HOME OR SELFCARE Is pt being admited?: No Condition: Stable Instructions: Diabetic Hyperglycemia (ED) Referrals: Jamin Saunders [Other] - 3-5 Days
[2019-10-12] MEDS: INSULIN REGULAR, HUMAN 100 UNITS/1 ML IV ONE (23:33)
[2019-10-12] MEDS: SODIUM CHLORIDE 0.9% 1000 ML 1,000 ML IV ONE (23:34)
[2019-10-13 01:16] VITALS: BP 105/71
== END 2019-10-13 01:15 | disposition home or self-care (01) ==
LOC: ED 14:20
DX: E11.65 Type 2 diabetes mellitus with hyperglycemia (principal); E03.9 Hypothyroidism, unspecified; Z98.51 Tubal ligation status; Z98.890 Other specified postprocedural states; Z79.1 Long term (current) use of non-steroidal anti-inflammatories (NSAID); Z79.899 Other long term (current) drug therapy; Z88.8 Allergy status to other drugs, medicaments and biological substances
CPT/HCPCS: 36415; 80053; 81001; 81025; 82962; 83690; 85025; 96361; 96374; 99283; J7030; J1815

== ENCOUNTER 2019-11-12 01:54 | Emergency (ER) | payer OTHER ==
[2019-11-12 03:07] LABS: Basophils % (Auto) 0.4 % (0.0-1.8); Eosinophils # (Auto) 0.1 K/mm3 (0.0-0.4); Eosinophils % (Auto) 1.7 % (0.0-4.3); Hematocrit 40.9 % (30.3-42.9); Hemoglobin 14.4 gm/dl (10.1-14.3); Lymphocytes # (Auto) 2.8 K/mm3 (1.2-5.4); Lymphocytes % (Auto) 46.6 % (13.4-35.0); Mean Corpuscular HGB Conc 35 % (30-34); Mean Corpuscular Volume 87 fl (79-97); Monocytes # (Auto) 0.5 K/mm3 (0.0-0.8); Platelet Count 286 K/mm3 (140-440)
[2019-11-12 03:22] LABS: Bilirubin,Urine NEG (Negative); Blood,Urine NEG (Negative); Color,Urine Yellow (Yellow); Mucus,Urine FEW /HPF; Protein,Urine <15 mg/dL mg/dL (Negative); Urobilinogen,Urine < 2.0 mg/dL (<2.0)
[2019-11-12 03:32] LABS: Alanine Aminotransferase 20 units/L (7-56); BUN/Creatinine Ratio 21; Blood Urea Nitrogen 15 mg/dL (7-17); Calcium 9.7 mg/dL (8.4-10.2); Hemolysis Index 8
[2019-11-12] MEDS ORDERED: IBUPROFEN 600 MG TAB PO ONE (04:27)
[2019-11-12] MEDS ORDERED: ONDANSETRON 4 MG ODT TAB PO ONE (04:30)
[2019-11-12] MEDS ORDERED: SODIUM CHLORIDE 0.9% 1000 ML 1,000 ML IV ONE (04:31)
--- NOTE | 2019-11-12 04:32 | Emergency Department Report ---
ED Female HPI - General Chief complaint: Abdominal Pain Stated complaint: ABD PAIN Time Seen by Provider: 11/12/19 04:26 Source: patient Mode of arrival: Ambulatory Limitations: No Limitations - History of Present Illness Initial comments: 39-year-old female presents to the emergency room for prepped abdominal pain Started about 5 PM yesterday. Patient states when she came in she had no nausea no vomiting. Patient reports she has nausea and vomited 1 since she's been back in the exam room. Patient does have a past medical history of hypothyroidism and has had a tubal ligation with reversal of tubal and 3 C- sections. Patient's last menstrual period was 11/08/2019. Patient is a diabetic breath her blood sugar at 223 fingerstick. 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 Radiation: R flank Severity: severe Severity scale (0 -10): 10 Quality: cramping, sharp Consistency: constant Improves with: none Worsens with: none Are you Now?: No Last Menstrual Period: 11/08/19 EDC: 08/14/20 - Related Data Home Medications Medication Instructions Recorded Confirmed Last Taken Insulin Aspart (Nf) [NovoLOG 25 units SQ AC 01/28/17 01/28/17 01/26/17 Flexpen] Insulin Glargine [Lantus] 50 units SQ QHS 01/28/17 01/28/17 01/26/17 Previous Rx's Medication Instructions Recorded Last Taken Type Ibuprofen [Ibu] 800 mg PO Q8H PRN #20 tablet 01/09/19 Unknown Rx Ondansetron [Zofran Odt] 4 mg PO Q8HR #10 tab.rapdis 01/09/19 Unknown Rx Oxycodone HCl/Acetaminophen 1 each PO Q6HR PRN #14 tablet 01/09/19 Unknown Rx [Percocet 7.5/325 mg] levoFLOXacin [Levaquin TAB] 500 mg PO QDAY #10 tablet 01/09/19 Unknown Rx Nitrofurantoin Saline/M-Cryst 100 mg PO Q12HR 10 Days #20 capsule 11/12/19 Unknown Rx [Macrobid CAP] Allergies Allergy/AdvReac Type Severity Reaction Status Date / Time fluconazole Allergy Itching Verified 01/09/19 12:24 ED Review of Systems ROS: Stated complaint: ABD PAIN Other details as noted in HPI Comment: All other systems reviewed and negative ED Past Medical Hx - Past Medical History Previous Medical History?: Yes Hx Diabetes: Yes Additional medical history: hypothyroid, - Surgical History Past Surgical History?: Yes Additional Surgical History: c sect. x 3, tubal ligation, reversion of tubal - Social History Smoking Status: Never Smoker Substance Use Type: None - Medications Home Medications: Home Medications Medication Instructions Recorded Confirmed Last Taken Type Insulin Aspart (Nf) [NovoLOG 25 units SQ AC 01/28/17 01/28/17 01/26/17 History Flexpen] Insulin Glargine [Lantus] 50 units SQ QHS 01/28/17 01/28/17 01/26/17 History Ibuprofen [Ibu] 800 mg PO Q8H PRN #20 tablet 01/09/19 Unknown Rx Ondansetron [Zofran Odt] 4 mg PO Q8HR #10 tab.rapdis 01/09/19 Unknown Rx Oxycodone HCl/Acetaminophen 1 each PO Q6HR PRN #14 tablet 01/09/19 Unknown Rx [Percocet 7.5/325 mg] levoFLOXacin [Levaquin TAB] 500 mg PO QDAY #10 tablet 01/09/19 Unknown Rx Nitrofurantoin Saline/M-Cryst 100 mg PO Q12HR 10 Days #20 capsule 11/12/19 Unknown Rx [Macrobid CAP] ED Physical Exam - General Limitations: No Limitations General appearance: alert, in distress - Head Head exam: Present: atraumatic, normocephalic - Eye Eye exam: Present: normal appearance - ENT ENT exam: Present: mucous membranes moist - GI/Abdominal GI/Abdominal exam: Present: soft, tenderness, guarding, normal bowel sounds. Absent: distended - Back Exam Back exam: Present: CVA tenderness (R) - Neurological Exam Neurological exam: Present: alert, oriented X3 - Psychiatric Psychiatric exam: Present: normal affect, normal mood - Skin Skin exam: Present: warm, dry, intact, normal color. Absent: rash ED Course Vital Signs 11/12/19 02:24 Temperature 97.5 F L Pulse Rate 82 Respiratory 20 Rate Blood Pressure 153/106 O2 Sat by Pulse 100 Oximetry ED Medical Decision Making - Lab Data Result diagrams: 11/12/19 02:48 11/12/19 02:48 - Radiology Data Radiology results: report reviewed Patient: REYES ISAACS MR#: [id number] : 1980 Acct:[id number] Age/Sex: 39 / F ADM Date: 11/12/19 Loc: ED Attending Dr: Ordering Physician: BUD HICKS Date of Service: 11/12/19 Procedure(s): CT abdomen pelvis w con Accession Number(s): [id number] cc: BUD HICKS CT ABDOMEN AND PELVIS WITH CONTRAST INDICATION: Right upper quadrant pain. COMPARISON: CT abdomen and pelvis with contrast from 01/09/2019. TECHNIQUE: Axial, coronal and sagittal CT imaging of the abdomen and pelvis was performed after injection of 100 cc Omnipaque [address] scans at this location are performed using CT dose reduction for ALARA by means of automated exposure control. FINDINGS: LOWER CHEST: No significant abnormality. LIVER: No significant abnormality. BILIARY: There is a 2 cm gallstone located along the gallbladder neck without evidence of acute cholecystitis. No biliary ductal dilatation. PANCREAS: No significant abnormality. SPLEEN: No significant abnormality. ADRENALS: No significant abnormality. KIDNEYS AND URETERS: No significant abnormality. GI TRACT: No significant abnormality of the stomach, small bowel or colon. Unremarkable appendix. PERITONEUM: No free fluid. No free air. No fluid collection. LYMPH NODES: No significant adenopathy. VASCULATURE: No significant abnormality. URINARY BLADDER: No significant abnormality. REPRODUCTIVE ORGANS: No significant abnormality. ADDITIONAL FINDINGS: None. SKELETAL SYSTEM: No significant abnormality. IMPRESSION: 1. No acute abnormality of the abdomen or pelvis. 2. Cholelithiasis without evidence of acute cholecystitis. - Medical Decision Making 39-year-old female presents to the emergency room for prepped abdominal pain Started about 5 PM yesterday. Patient states when she came in she had no nausea no vomiting. Patient reports she has nausea and vomited 1 since she's been back in the exam room. Patient does have a past medical history of hypo thyroidism and has had a tubal ligation with reversal of tubal and 3 C-sections. Patient's last menstrual period was 11/08/2019. Patient is a diabetic breath her blood sugar at 223 fingerstick. Critical care attestation.: If time is entered above; I have spent that time in minutes in the direct care of this critically ill patient, excluding procedure time. ED Disposition Clinical Impression: UTI (urinary tract infection), Abdominal pain Disposition: DC-01 TO HOME OR SELFCARE Is pt being admited?: No Does the pt Need Aspirin: No Condition: Stable Instructions: Abdominal Pain (ED) Additional Instructions: CT scan was negative for any acute abnormalities. He had been treated for urinary tract infection. Take medication as prescribed increase her fluid intake take [id number] ibuprofen or Tylenol for pain management. La tomografa computarizada fue negativa para cualquier anormalidad aguda. Haba sido tratado por infeccin del tracto urinario. [place] los medicamentos segn lo prescrito, aumente pizarro ingesta de lquidos, tome ibuprofeno o Tylenol de venta li brian para el control del dolor. Prescriptions: Nitrofurantoin Saline/M-Cryst [Macrobid CAP] 100 mg PO Q12HR 10 Days #20 capsule Print Language: SAMI
--- NOTE | 2019-11-12 05:25 | Cat Scan Report ---
CT ABDOMEN AND PELVIS WITH CONTRAST INDICATION: Right upper quadrant pain. COMPARISON: CT abdomen and pelvis with contrast from 01/09/2019. TECHNIQUE: Axial, coronal and sagittal CT imaging of the abdomen and pelvis was performed after inje ction of 100 cc Omnipaque [address] scans at this location are performed using CT dose re duction for ALARA by means of automated exposure control. FINDINGS: LOWER CHEST: No significant abnormality. LIVER: No significant abnormality. BILIARY: There is a 2 cm gallstone located along the gallbladder neck without evidence of acute vijay cystitis. No biliary ductal dilatation. PANCREAS: No significant abnormality. SPLEEN: No significant abnormality. ADRENALS: No significant abnormality. KIDNEYS AND URETERS: No significant abnormality. GI TRACT: No significant abnormality of the stomach, small bowel or colon. Unremarkable appendix. PERITONEUM: No free fluid. No free air. No fluid collection. LYMPH NODES: No significant adenopathy. VASCULATURE: No significant abnormality. URINARY BLADDER: No significant abnormality. REPRODUCTIVE ORGANS: No significant abnormality. ADDITIONAL FINDINGS: None. SKELETAL SYSTEM: No significant abnormality. IMPRESSION: 1. No acute abnormality of the abdomen or pelvis. 2. Cholelithiasis without evidence of acute cholecystitis. Signer Name: Temo Garcia MD Signed: 11/12/2019 5:20 AM Workstation Name: [email or web address]
[2019-11-12 06:16] VITALS: BP 111/80
== END 2019-11-12 06:16 | disposition home or self-care (01) ==
LOC: ED 01:54
DX: N39.0 Urinary tract infection, site not specified (principal); R10.32 Left lower quadrant pain; E11.9 Type 2 diabetes mellitus without complications; Z79.1 Long term (current) use of non-steroidal anti-inflammatories (NSAID); Z98.51 Tubal ligation status; Z79.84 Long term (current) use of oral hypoglycemic drugs; Z88.8 Allergy status to other drugs, medicaments and biological substances
CPT/HCPCS: 36415; 74177; 80053; 81001; 82962; 84703; 85025; 96360; 99284; J7030; Q9967; Q0162